=== PATIENT | female | born 1945 | race Caucasian/White ===

== ENCOUNTER 2017-12-29 05:35 | Day surgery (SDC) | payer MEDICARE, OTHER ==
[~2017-12-29] VITALS: Ht 162.6 cm; Wt 92.1 kg
--- NOTE | ~2017-12-29 | OR ---
[facility] [address] [place], [place] [address] Draft DATE OF OPERATION: 12/29/2017 SURGEON: Sheng Valenzuela MD OUTPATIENT SURGERY LOCATION: [facility]. PREOPERATIVE DIAGNOSIS: Right mandibular gingival lesion. POSTOPERATIVE DIAGNOSIS: Right mandibular gingival lesion. PROCEDURE PERFORMED: Excision of right mandibular gingival lesion. ANESTHESIA: General orotracheal. NETTE, Alta Márquez. PREOPERATIVE HISTORY: Doni is a 72-year-old lady with a several month history of an exophytic lesion growing from the right mandibular gingiva anterior adjacent to the canine, this has been quite bothersome, difficulty with eating, etc. She was taken to the operating room for the above-mentioned procedures. OPERATIVE PROCEDURE AND FINDINGS: After informed consent, the patient was taken to the operating room, placed in supine position, where general orotracheal anesthesia was induced. The patient and procedure were verified. The patient was repositioned. 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 1% lidocaine with epinephrine was injected in the mucosa and gingiva around this tumor, did not seem to involve the lingual surface of the mandible, it was attached to the gingiva between the lateral incisor and canine teeth 26 and 27. The lesion was excised from the gingiva, sent to pathology in formalin. Hemostasis was obtained with needle point cautery. The attachment was along the gingiva of the canine tooth, not appear to extend medially to the lingual surface at all. Hemostasis was obtained with needle point cautery. No further pathology was identified. The patient was awakened, PATIENT NAME: DONI BERG OPERATIVE REPORT DATE OF : 49 REPORT #: [id number] PHYSICIAN: SHENG VALENZUELA MD PCP: DAMI BABIN DO REPORT IS CONFIDENTIAL AND NOT TO BE RELEASED WITHOUT AUTHORIZATION [address] [place], [place] [address] Draft extubated, and transported to recovery room in good condition. No complications. BLOOD LOSS: Minimal. SPECIMEN: To pathology. DRAINS: No drains. Sheng Valenzuela MD GC/LIT /[id number] Copies: ~ PATIENT NAME: DONI BERG OPERATIVE REPORT DATE OF : 49 REPORT #: [id number] PHYSICIAN: SHENG VALENZUELA MD PCP: DAMI BABIN DO REPORT IS CONFIDENTIAL AND NOT TO BE RELEASED WITHOUT AUTHORIZATION
[~2017-12-29 05:35] MED LIST: BIOTIN2500 MCG PO; CRANBERRY300 MG PO; CYCLOBENZAPRINE10 MG PO; FUROSEMIDE40 MG PO; LUTEIN20 MG PO; MECLIZINE HCL12.5 MG PO; MELOXICAM15 MG PO; NORCO 10-325 T1 EACH PO; NORCO 5-325 TA1 EACH PO; NORTRIPTYLINE H50 MG PO; POTASSIUM CHLO20 ME2 PO; SINGULAIR10 MG PO; TORSEMIDE20 MG PO; TRIAMTERENE-HC1 EAC3 PO; TURMERIC500 MG PO; VITAMIN D1000 UNI1 PO
--- NOTE | 2017-12-29 08:02 | NUR ---
PATIENT TO SURGERY.
--- NOTE | 2017-12-29 08:44 | NUR ---
12/29/17 0844 Maribell Gabriel 0830 PT ARRIVED TO PACU WITH ORAL AIRWAY IN PLACE AND NONAROUSABLE. PT ON 6L VIA MASK, RESP EVEN AND UNLABORED. 0835 MD AT BEDSIDE PT REACTIVE TO TACTILE STIMULI AND REMAINS ASLEEP. 0838 PT STARTED COUGHING, ORAL AIRWAY REMOVED. PT REORIENTED TO PACU. O2 MASK REMOVED, O2 SAT 100%. PT DENIES NAUSEA AND PAIN. 0840 PT REPORTS SURGICAL SPOT FEELS BETTER THEN BEFORE SURGERY. 0843 PT BACK TO SLEEP.
--- NOTE | 2017-12-29 09:12 | NUR ---
ICED WATER AND COFFEE GIVEN. CALL LIGHT W/IN REACH.
[2017-12-29] MEDS ORDERED: HYCET 7.5 MG-3473 ML PO (09:34)
--- NOTE | 2017-12-29 11:58 | NUR ---
1100 PATIENT IV D/C'D WITH CATHETER INTACT. PATIENT GIVEN WHEELCHAIR RIDE TO FRONT OF HOSPITAL WITH VOLUNTEER FOR DAUGHTER IN LAW TO TRANSPORT HOME.
--- NOTE | 2017-12-29 14:36 | NUR ---
PT IS ALERT AND ORIENTED. SHE MENTIONED THAT THIS IS THE FIRST TIME SINCE HER 'S LAST YEAR THAT SHE HAS DONE ANYTHING LIKE THIS ALONE. SHE SEEMS TO BE DEALING WITH LOSS APPROPRIATELY WE CONTINUED TO VISIT. PT MENTIONED HOW HELPFUL AND COMPASSIONATE STAFF WERE IN ER WHEN HER PASSED. HAD PRAYER WITH PT, WILL FOLLOW NEEDED
== END 2017-12-29 11:05 | disposition home or self-care (01) ==
LOC: OPS 05:35 → DS 05:35 → OPS 06:45 → DS 09:30 → OPS 11:05
PROVIDERS: Otolaryngology
PROC: 0CB6XZZ Excision of Lower Gingiva, External Approach (ICD-10-PCS; principal; 2017-12-29 06:45)
DX: K06.8 Other specified disorders of gingiva and edentulous alveolar ridge (principal); N18.9 Chronic kidney disease, unspecified; M19.90 Unspecified osteoarthritis, unspecified site; K29.60 Other gastritis without bleeding; F32.9 Major depressive disorder, single episode, unspecified; F41.9 Anxiety disorder, unspecified; E66.9 Obesity, unspecified; Z88.2 Allergy status to sulfonamides; Z88.8 Allergy status to other drugs, medicaments and biological substances; Z79.899 Other long term (current) drug therapy; Z87.891 Personal history of nicotine dependence
CPT/HCPCS: J1100; J2250; J2405; J7120

== ENCOUNTER 2018-01-06 19:07 | Emergency (ER) | payer MEDICARE, OTHER ==
[~2018-01-06] VITALS: Ht 162.6 cm; Wt 92.1 kg
[~2018-01-06 19:07] MED LIST changes: +HYCET 7.5 MG-3473 ML PO
--- NOTE | 2018-01-07 14:26 | EKG ---
[facility] [address] [facility] [place] [address] Signed Normal sinus rhythm Left anterior fascicular block Abnormal ECG When compared with ECG of 28-DEC-2017 17:11, Borderline criteria for Lateral infarct are no longer present Confirmed by ESAU GIL MD ([id number]) on 01/07/2018 2:26:23 PM Electronically Signed By: ESAU GIL MD 01/07/18 1426 PATIENT NAME: MALISSA BERG Electrocardiogram DATE OF : 49 PHYSICIAN: ESAU GIL MD REPORT #: [id number] REPORT IS CONFIDENTIAL AND NOT TO BE RELEASED WITHOUT AUTHORIZATION
== END 2018-01-07 02:35 | disposition home or self-care (01) ==
LOC: ED 19:07
DX: I95.1 Orthostatic hypotension (principal); Z88.8 Allergy status to other drugs, medicaments and biological substances; Z88.2 Allergy status to sulfonamides; Z79.899 Other long term (current) drug therapy
CPT/HCPCS: 70450; 71046; 80053; 83735; 83880; 84484; 85025; 85379; 93005; 93010; 96360; 96361; 99285; J7030

== ENCOUNTER 2020-06-02 12:20 | Emergency (ER) | payer MEDICARE, OTHER ==
[~2020-06-02] VITALS: Ht 162.6 cm; Wt 92.1 kg
[2020-06-02] MEDS ORDERED: DULOXETINE HCL60 MG PO (12:33)
--- NOTE | 2020-06-03 12:09 | EKG ---
[facility] [address] [facility] [place] [address] Signed Normal sinus rhythm Left anterior fascicular block Abnormal ECG When compared with ECG of 06-JAN-2018 19:19, No significant change was found Confirmed by ESAU GIL MD ([id number]) on 06/03/2020 12:08:52 PM Electronically Signed By: ESAU GIL MD 06/03/20 1209 PATIENT NAME: MALISSA BERG Electrocardiogram DATE OF : 49 PHYSICIAN: ESAU GIL MD REPORT #: [id number] REPORT IS CONFIDENTIAL AND NOT TO BE RELEASED WITHOUT AUTHORIZATION
== END 2020-06-02 18:20 | disposition short-term general hospital (02) ==
LOC: ED 12:20
DX: R29.898 Other symptoms and signs involving the musculoskeletal system (principal); N18.30 Chronic kidney disease, stage 3 unspecified; Z20.822 Contact with and (suspected) exposure to COVID-19; Z87.891 Personal history of nicotine dependence; Z88.8 Allergy status to other drugs, medicaments and biological substances; Z88.2 Allergy status to sulfonamides; Z79.899 Other long term (current) drug therapy
CPT/HCPCS: 70450; 70496; 70498; 72131; 80053; 83735; 84484; 85025; 93005; 93010; 99285-25; C9803; Q9967; U0003

== ENCOUNTER 2020-09-18 01:30 | Inpatient (IN) | payer MEDICARE, OTHER ==
[~2020-09-18] VITALS: Ht 162.6 cm; Wt 88.2 kg
[~2020-09-18 01:30] MED LIST changes: +DULOXETINE HCL60 MG PO; -VITAMIN D1000 UNI1 PO; +VITAMIN D325 MCG PO
[2020-09-18] MEDS ORDERED: POTASSIUM CHLO10 MEQ PO (01:46)
[2020-09-18] MEDS ORDERED: ALLOPURINOL100 MG PO (01:47)
--- NOTE | 2020-09-18 04:25 | NUR ---
THIS RN TO ER. BEDSIDE REPORT FROM LYN ZUÑIGA. MOVED pt FROM ED TO FLOOR. 4PA TO MOVE FROM STRETCHER TO BED. pt REPORTED 1/10 PAIN WHEN RESTING, 10/10 PAIN WHEN MOVING.
--- NOTE | 2020-09-18 04:59 | NUR ---
ASSESSMENT DONE. pt IS ALERT AND ORIENTED. LUNGS CLEAR, DENIES COUGH. SKIN BREAKDOWN NOTED UNDER EACH BREAST. EXORIATION IN BETWEEN LEGS, DIFFICULT TO CLEAN pt CAN ONLY MOVE LEFT LEG. DENIES INCONTENENCE. FULL BED BATH GIVEN. pt REPORTS IT HAS BEEN 2 WEEKS SINCE SHE HAS HAD A PROPER BATH. pt REPORTS FALL IN JUNE WHEN ALL THE PAIN STARTED. SHE WAS IN HER BATHTUB AND COULD NOT MOVE HER RIGHT LEG, HER LEFT LEG WAS OUT OF THE TUB. SHE WAS SENT TO ANOTHER HOSPITAL, MOVED FROM THE STRETCHER TO BED AND "SOMETHING POPPED AND IN 30 MINUTES IT WAS FINE" pt HAS HAD INCREASING PAIN IN THE LAST WEEK. pt IS USING A WALKER. PITTING EDEMA IN BOTH LEGS. RIGHT LEG HAS TREMORS. AARON RN IN ROOM TO DO ADMISSION.
--- NOTE | 2020-09-18 06:42 | NUR ---
ROUNDED ON pt. WOKE TO VOICE. DENIES INCREASED PAIN OR DISCOMFORT. NO REQUESTS AT THIS TIME. CALL LIGHT WITHIN REACH.
--- NOTE | 2020-09-18 07:05 | NUR ---
BEDSIDE HANDOFF REPORT RECEIVED FROM SCARRER RN. PT RESTING IN BED. PT DENIES OTHER NEEDS AT THIS TIME.
--- NOTE | 2020-09-18 07:54 | NUR ---
PT AWAKE IN BED. WARM CLOTH GIVEN FOR FACE. WHITE BOARD UPDATED. CALL LIGHT WITHIN REACH. BREAKFAST ORDERED. NO FURTHER NEEDS AT THIS TIME.
--- NOTE | 2020-09-18 08:55 | NUR ---
PT RESTING IN BED. ALERT AND ORIENTED. PT DENIES PAIN AT REST, SIGNIFICANT PAIN WITH MOVEMENT. LUNG SOUNDS CLEAR, DENIES SOB, ON ROOM AIR. PT WITH EDEMA IN BLE WORSE IN RIGHT FOOT. CMS INTACT. PT ASSISTED ON TO BED NEWTON, VOIDED. PT WITH GOOD APPETITE, ATE BREAKFAST, DENIES NAUSEA. AWAITING DR. GIL TO EVALUATE PT AND PLACE ORDERS. PT DENIES OTHER NEEDS AT THIS TIME.
--- NOTE | 2020-09-18 10:40 | NUR ---
PT RESTING IN BED. PT GIVEN MEDICATIONS PER EMAR, DISCUSSED PURPOSES AND SIDE EFFECTS. PT DENIES OTHER NEEDS AT THIS TIME.
--- NOTE | 2020-09-18 14:50 | NUR ---
PT RESTING IN BED. PT STATES PAIN IS FINE AT THIS TIME, 6/10 WITH ACTIVITY, PT STATES SHE FEELS THE CURRENT MEDICATION TREATMENT PLAN IS EFFECTIVE. PT ON ROOM AIR, LUNG SOUNDS CLEAR. BOWEL TONESA ACTIVE, TOLERATING DIET. CMS INTACT. PT CONTINUES TO HAVE EDEMA IN BLE, UNCHANGED. PT DENIES OTHER NEEDS AT THIS TIME.
[2020-09-18] MEDS ORDERED: CO Q-10200 MG PO (15:50)
--- NOTE | 2020-09-18 15:52 | NUR ---
MED REC COMPLETE
--- NOTE | 2020-09-18 16:28 | NUR ---
Pt lives alone in an apart on the ground level. Has 2 steps into the apartment which she has difficulty with at times. Pt uses canes, walk er, rollator, and walking sticks as needed. She thinks she may need a shower chair as sheis afraid to shower. She also feels she is in need of a cg as she is unable to complete house hold chores and shower self. Discussed cg and helping hands. Gave [employer] brochure. Her daughter also has spoken with a cg to assist pt in the home. Pt denies other needs. States at times her r leg with not work and she has been stuck in the tub in the past as she was unable to get leg over the side of the tub after showering. Pts step daughter shops and does pts laundry. Pts daughter lives in [place] and would like pt to move to [place] with her. Son is Isaías.
--- NOTE | 2020-09-18 17:46 | NUR ---
PT CONTINUES TO HAVE SIGNIFICANT PAIN WITH MOVEMENT, GABAPENTIN STARTED TODAY. PT ON ROOM AIR, LUNG SOUNDS CLEAR. PT LIMITED WITH MOBILITY, 2PA TO ASSIST TO ROLL, UNABLE TO DO MORE THAN BED EXERCISES WITH P.T. CMS INTACT, CONTINUES TO HAVE EDEMA IN BLE. PT VOIDING USING BED NEWTON.
--- NOTE | 2020-09-18 19:18 | NUR ---
RECEIVED REPORT FROM LYN SCHNEIDER. pt RESTING IN BED. DENIES PAIN AT THIS TIME. CALL LIGHT WITHIN REACH. NO REQUESTS.
--- NOTE | 2020-09-18 22:00 | NUR ---
IN TO DO ASSESSMENT. pt RESTING IN BED. DENIES NEED TO URINATE. DENIES PAIN. pt BRUSHED TEETH AND DID PM CARES. SKIN CARE DONE APPLIED DESENEX POWDER TO REDDENED SKIN FOLDS. SKIN COLOR HAS IMPROVED SINCE ADMISSION. ASSESSMENT DONE. MEDICATIONS GIVEN (SEE MAR). PROVIDED JELLO. NO FURTHER REQUESTS AT THIS TIME. CALL LIGHT WITHIN REACH.
--- NOTE | 2020-09-19 00:19 | NUR ---
ROUNDED ON pt. RESTING IN BED WITH EYES CLOSED, RESPIRATIONS REGULAR AND UNLABORED. CALL LIGHT WITHIN REACH.
--- NOTE | 2020-09-19 02:40 | NUR ---
IN TO DO VITALS. pt WOKE TO VOICE. VITALS DONE. pt DENIED NEED TO VOID BUT AGREED TO TRY. 2PA LOG ROLL ON TO BEDPAN. pt CALLED WHEN DONE. CONCENTRATED CLOUDY URINE. PERICARE DONE. ASSESSMENT DONE. NO FURTHER REQUESTS AT THIS TIME. CALL LIGHT WITHIN REACH.
--- NOTE | 2020-09-19 04:31 | NUR ---
ROUNDED ON pt. RESTING IN BED WITH EYES CLOSED, RESPIRATIONS REGULAR AND UNLABORED. CALL LIGHT WITHIN REACH.
--- NOTE | 2020-09-19 06:20 | NUR ---
IN TO DO VITALS. pt WOKE TO VOICE. VITALS DONE. pt PLACED ON BED NEWTON. CALLED WHEN DONE. LOW URINE OUTPUT. pt HAS NOT HAD MUCH TO DRINK. REPORTED SLEEPING WELL. REPOSITIONED. NO REQUESTS AT THIS TIME. CALL LIGHT WITHIN REACH.
--- NOTE | 2020-09-19 06:56 | NUR ---
NOTIFIED OF LOW URINE OUTPUT. NO NEW ORDERS AT THIS TIME.
--- NOTE | 2020-09-19 08:35 | NUR ---
Scheduled medications administered, assessment complete. Plan of care reviewed with pt who is agreeable. Pt reports no pain at this time. Skin visualized and intact. Breakfast ordered, no further needs, call light in reach.
--- NOTE | 2020-09-19 10:00 | NUR ---
PT in working with patient.
--- NOTE | 2020-09-19 11:05 | NUR ---
Rounded on patient, lunch tray provided and pt up in chair after working with PT. Assisted with set up of lunch, pt states no other needs. Call light in reach.
--- NOTE | 2020-09-19 11:30 | NUR ---
Spoke with Doni. Feeling much better, was able to work with PT and denies pain. Plans on dc to home, with buttermaker helper plan to move to [place] and live with her daughter. States she does not feel she needs to live with daughter at this time as painful episodes are far between. Discussed its better to make a plan when she is not in crisis.
--- NOTE | 2020-09-19 12:38 | NUR ---
Scheduled medications administered and PRN tylenol for mild pain in lower back and R hip/leg. Pt ambulates from chair to BR with FWW and 1PA, tolerated well. Able to walk with FWW to bed, needs assistance with swinging legs into bed and further repositioning due to leg cramping. Juice and water provided, no further needs.
--- NOTE | 2020-09-19 13:45 | NUR ---
PT AWAKE IN BED WATCHING TV. FRESH WATER GIVEN. CALL LIGHT WITHIN REACH. NO FURTHER NEEDS AT THIS TIME.
--- NOTE | 2020-09-19 15:55 | NUR ---
ASSISTED PATIENT TO BATHROOM PATIENTS LEGS WERE VERY TIRED. BEDSIDE COMMODE USED. CALL LIGHT IN REACH. CALL LIGHTIN REACH NOTHING ELSE NEEDED AT THIS TIME.
--- NOTE | 2020-09-19 17:30 | NUR ---
Scheduled medications administered, pt sitting up in bed eating dinner and states no needs. Discussed plan of care and medication indications, pt verbalizes understanding. All questions answered.
--- NOTE | 2020-09-19 19:35 | NUR ---
RECEIVED REPORT FROM DAY SHIFT RN. PATIENT IS RESTING IN BED. NO FURTHER NEEDS NOTED. CALL LIGHT IN REACH.
--- NOTE | 2020-09-19 20:40 | NUR ---
PATIENT ASSESMENT COMPLETED. PATIENTS VITALS TAKEN AND RECORDED. INTAKE AND OUPUT RECORDED. IV FLUSHES WELL AND PATIENT REMAINS SL. PATIENT RATES PAIN AT A 2/10 IN HER RIGHT LEG. PATIENT DENIES THE NEED FOR PRN PAIN MEDICATION. PATIENTS SCHEDULED MEDICATIONS GIVEN PER ORDER. PATIENT DENIES ANY NEEDS. CALL LIGHT AND BELONGINGS WITHIN REACH.
--- NOTE | 2020-09-19 21:00 | NUR ---
IN TO ASSIST PT UP TO THE BSC, 1PA FWW PIVOT, PT REQUIRES SOME ASSIST WITH RT LEG IN AND OUT OF BED, NO FURTHER NEEDS AT THIS TIME
--- NOTE | 2020-09-19 23:52 | NUR ---
PATIENT ASSISTED TO THE RESTROOM A 1PA W/FWW. PATIENT WAS ABLE TO VOID. PATIENT IS BACK IN BED RESTING. PATIENT DENIES ANY NEEDS AT THIS TIME. CALL LIGHT IN REACH.
--- NOTE | 2020-09-20 01:50 | NUR ---
PATIENT IS RESTING IN BED WITH EYES CLOSED, RR 18. CALL LIGHT IN REACH.
--- NOTE | 2020-09-20 02:20 | NUR ---
in to assist pt to the toilet, 1pa fww to the bathroom and back to bed, assist pt with legs, no further needs at this time
--- NOTE | 2020-09-20 03:43 | NUR ---
PATIENT IS RESTING IN BED WITH EYES CLSOED, RR 18. CALL LIGHT IN REACH.
--- NOTE | 2020-09-20 06:15 | NUR ---
IN TO GET VITALS WITH RN, PT BACK TO RESTING AT THIS TIME, NO FURTHER NEEDS AT THIS TIME
--- NOTE | 2020-09-20 06:32 | NUR ---
VITALS TAKEN AND RECORDED. INTAKE AND OUTPUT RECORDED. PATIENT REPORTS 3/10 PAIN AND DENIES THE NEED FOR PAIN MEDICATION AT THIS TIME. PATIENT IS RESTING IN BED. PATIENT DENIES ANY FURTHER NEEDS. CALL LIGHT IN REACH.
--- NOTE | 2020-09-20 09:45 | NUR ---
PT UP TO BSC. 1PA W/ FWW. PT C/O PAIN WHEN WIPING BOTTOM, VISUALIZED OPEN SORE AREA, PICTURES TAKEN AND PLACED ON CHART. ALLEVYN ON COCCYX FOR PRESSURE RELIEF. PT SITTING UP IN CHAIR W/ PILLOWS. REPORTS FEELING MINIMAL PAIN AT REST. ABLE TO AMBULATE SHORT DISTANCES W/OUT FEELING SOB. PT RECEIVING SCHEDULED FLEXERIL FOR RIGHT LEG PAIN. LIDOCAINE PATCH PUT IN PLACE.
--- NOTE | 2020-09-20 12:30 | NUR ---
PT EATING AND DRINKING WELL. LUNCH TRAY REMOVED. PT UP TO USE BATHROOM TO VOID, URINE OUTPUT HAS BEEN QUANTITY SUFFICIENT. RATING RIGHT LEG AND BACK PAIN 3/10 AT THIS TIME. BACK TO CHAIR. DENIES FURTHER NEEDS. CALL LIGHT IN REACH.
--- NOTE | 2020-09-20 14:54 | NUR ---
SET PATIENT UP FOR A SHOWER SOMETIME TODAY.
--- NOTE | 2020-09-20 15:30 | NUR ---
GAVE PT AFTERNOON SCHEDULED FLEXERIL AND GABAPENTIN. PT REQUESTING TO USE COMMODE TO VOID. ASSOCIATE PROFESSOR OF MEDICINE'S IN TO SET UP SHOWER.
--- NOTE | 2020-09-20 15:58 | NUR ---
Spoke with pt and discussed concern from PT she is not safe to go home alone. Pt states she will consider rehab program and brochures given for [facility]. Will attempt to schedule appt with Dr Keys, she has seen in the past. Notified by Claudia, pt was seen in the hospital and not in the office. Pt will need referral from PCP to schedule appt.
--- NOTE | 2020-09-20 16:15 | NUR ---
PT SHOWERED AND BACK TO BED. HAS BEEN IN AND OUT OF CHAIR THROUGHOUT DAY, WORKING W/ PHYSICAL THERAPY WELL. WOULD LIKE TO REST IN BED NOW. CONTINUES TO BE VERY PAINFUL W/ MOVEMENT. SBA W/ FWW, 1PA TO GET UP. LUNG SOUNDS ARE CLEAR, DIM IN BASES. PT DENIES SOB W/ AMBULATION. DENIES PAIN AT REST.
--- NOTE | 2020-09-20 16:39 | NUR ---
CALLED TO SCHEDULE AN APPT. AND WAS TOLD THAT THEY NEED A REFERRAL FIRST THIS PATIENT IS NEW TO HIM AWAY FROM THE HOSPITAL. LET ELISA KNOW SINCE SHE WAS THE ONE THAT ASKED ME TO MAKE THE APPT.
--- NOTE | 2020-09-20 19:25 | NUR ---
SHIFT REPORT REEIVED FROM DAYSHIFT LYN GRIFFIN AT BESIDE, pt AWAKE AND RESTING IN CAHIR. RR EVEN AND UNALBORED, NO DISTRESS NOTED. CALL LIGHT IN REACH.
--- NOTE | 2020-09-20 19:50 | NUR ---
IN TO ASSIST PT TO THE BSC, 1PA FWW FROM CHAIR, THEN BACK TO BED, PILLOW POSSITIONED UNDER LEFT HIP, CALL LIGHT AND BEDSIDE TABLES IN REACH, NO FURTHER NEEDS AT THIS TIME
--- NOTE | 2020-09-20 21:45 | NUR ---
PT VITALS DONE, PT UP TO THE BSC, THEN BACK TO BED, PT POSSITIONED TO BACKSIDE AT THIS TIME
--- NOTE | 2020-09-20 21:50 | NUR ---
ASSESSMENT COMPLETE, SCHEDULED MEDS GIVEN (SEE EMAR). VSS, pt DENIES PAIN AT REST. ALLEVYN TO COCCYX C/D/I, UNABLE TO ASSESS UNDER ALLEVYN AT THIS TIME D/T DRESSING. pt EDUCATED ON IMPORTANCE TO TURN AND CHANGE POSITIONS WHEN AWAKE, pt VERBALIZED UNDERSTANDING. CALL LIGHT IN REACH, NO FURTHER NEEDS AT THIS TIME.
--- NOTE | 2020-09-20 23:35 | NUR ---
PT CALLED, 1PA W/FFW TO BSC AND BACK TO BED. LEGS ARE ELEVATED ON PILLOW AND CALL LIGHT IS CLOSE. PT DENIES FURTHER NEEDS AT THIS TIME.
--- NOTE | 2020-09-20 23:50 | NUR ---
IN TO CHECK ON PT TO SEE IF SHE NEEDED REPOSSITION WITH PILLOW, PT DECLINED AT THIS TIME SHE WAS UP TO VOID APPROX 15 AGO, STATES SHE WILL TO TRT TO CALL IN A COUPLE HOURS IF SHE WAKES UP, OTHERWISE SHE CAN MOVE HERSELF A LITTLE BIT
--- NOTE | 2020-09-21 01:56 | NUR ---
REPORT GIVEN TO LYN DUKE TO RESUME CARE FOR pt AT THIS TIME.
--- NOTE | 2020-09-21 01:56 | NUR ---
RECEIVED REPORT FROM CHUCK NICHOLSON. PATIENT IS RESTINGI N BED WITH EYES CLOSED, RR 17. CALL LIGHT IN REACH.
--- NOTE | 2020-09-21 03:46 | NUR ---
PATIENT IS RESTING IN BED WITH EYES CLSOED, RR 18. CALL LIGHT IN REACH.
--- NOTE | 2020-09-21 06:02 | NUR ---
PATIENT ASSISTED TO THE BSC A 1PA W/FWW. PATIENT WAS ABLE TO VOID. PATIENT IS BACK IN BED RESTING. PATIENT RATES PAIN AT A 3/10. PATIENT DENIES THE NEED FOR PAIN MEDICATION AT THIS TIME. PATIENT DENIES ANY NEEDS. CALL LIGHT IN REACH.
--- NOTE | 2020-09-21 09:00 | NUR ---
Spoke with Doni following IDT meeting. Plan for pt to go to SNF until she can see neurologist if Dr Keys will not accept as a transfer. Discussed SNFS and pt [facility].
--- NOTE | 2020-09-21 09:15 | NUR ---
PT UP TO CHAIR AFTER BREAKFAST. LIDOCAINE PATCH TO RT THIGH FOR PAIN AND SPASMS. RT LEG HAS SMALL TREMOR AT TIMES. PT HAS HAD GOOD APPETITE AND TOLERATING REGULAR DIET WELL. MORNING MEDICATIONS GIVEN. 20 G IV IN LEFT WRIST REMAINS PATENT. PT REPORTS FEELING WEAK THIS AM. ATTEMPTED TO AMBULATE TO BATHROOM THIS MORNING, BEGAN C/O FEELING WEAK AND UNSTEADY, COMMODE BROUGHT TO PT TO VOID. PT REQUESTING BOWEL MEDS SHE HAS NOT HAD A BM SINCE 09/18.
--- NOTE | 2020-09-21 09:39 | NUR ---
PATIENT UP TO CHAIR WITH LYN GRIFFIN, THIS CHIEF SOLUTION ARCHITECT TOOK OVER. PATIENT STOOD WITH FWW TO MOVE TO CHAIR, FELT UNSURE/WEAK AND SAT BACK DOWN SWIFTLY. PATIENT PRETTY SHOOK UP, BUT ATTEMPTED AGAIN AND WAS ABLT TO MOVE TO CHAIR WITH NO PROBLEM THIS TIME. LEGS ELEVATED, CALL LIGHT AND PERSONAL ITEMS WITHIN EASY REACH. LYN GRIFFIN NOTIFIED.
--- NOTE | 2020-09-21 10:00 | NUR ---
PT UP WORKING WITH KIMMY FROM PT. AMBULATING HALLWAY WHEN SHE REQUESTED TO SIT DOWN IN WHEELCHAIR AND HAD MODERATE ANXIETY ATTACK. RETURNED WITH PT TO ROOM AND WAS ABLE TO CALM PT WITH THERAPEUTIC COMMUNICATION AND DEEP BREATHING TECHNIQUES. PT STATES ANXIETY MOSTLY RESOLVED, DENIES NEED FOR MEDICATION AT THIS TIME. PT TO BED AND PROVIDED WARM BLANKETS. VSS. CALL LIGHT IN REACH.
--- NOTE | 2020-09-21 11:30 | NUR ---
Chart faxed to [facility] and left a message if this pt could admit today or tomorrow.
--- NOTE | 2020-09-21 13:00 | NUR ---
PT MOOD MUCH IMPROVED AFTER LUNCH. TRAY TAKEN FROM ROOM. PT DENIES FURTHER NEEDS. CALL LIGHT IN REACH.
--- NOTE | 2020-09-21 14:05 | NUR ---
Spoke with Lillian, she will review. Admit would be tomorrow. She will let me know after she reviews chart if they can accept.
--- NOTE | 2020-09-21 15:00 | NUR ---
Received call from [facility]. They will accept pt tomorrow, but cannot transport. Called [facility] and they can transport at 10:00. Pt needs to be at the front of the hospital by 10:00. They will scheduled pt's neuro visit with Dr. Corbin for the beginning of next week and will transport pt. Pt will need a covid swab and prior to admit. Covid ordered. Orders printed and given to Dr. Bae. In and spoke with. She will ask her children to bring her clothing.
--- NOTE | 2020-09-21 15:50 | NUR ---
Received orders and faxed to [facility] with [facility]. Orders placed in envelope at desk top publisher with request for staff to add covid test when completed and dc summary. Phone number for [facility] left for staff to call tomorrow to confirm orders [phone] and to call report. Spoke with pt and she does not think step kids will bring clothing. Informed I will ask the house supevisor to bring her some scrubs to transport in. She will check if kids can bring clothing at a later date.
[2020-09-21] MEDS ORDERED: GABAPENTIN100 MG PO (16:10)
--- NOTE | 2020-09-21 16:25 | NUR ---
RT COLLECTED COVID 19 SWAB WITH NO COMPLICATIONS. RT USED THE CEPHEID RAPID TEST THROUGH [facility] PER DR REQUEST AT THIS TIME.
--- NOTE | 2020-09-21 19:30 | NUR ---
SHIFT REPORT RECEIVED FROM DAYSHIFT LYN GRIFFIN. pt AWAKE AND RESTING IN BED, NO NEEDS VERBALIZED. CALL LIGHT IN REACH.
--- NOTE | 2020-09-21 21:15 | NUR ---
ASSESSMENT COMPLETE, SCHEDULED MEDS GIVEN (SEE EMAR). pt REPORTS TOLERABLE 2/10 PAIN, VSS. ALLEVYN TO COCCYX REMOVED EARLIER ON DAYSHI, REDDNESS BLANCHABLE. pt VERBALIZES UNDERSTANDING IN CHANGING POSITIONS WHILE IN BED. NO FURTHER NEEDS, CALL LIGHT IN REACH.
--- NOTE | 2020-09-21 21:20 | NUR ---
IN WITH RN TO GET VITALS, ICE WATER REFILLED, PT DOES NOT NEED TO VOID AT THIS TIME AND WILL CALL WHEN READY, NO FURTHER NEEDS AT THIS TIME
--- NOTE | 2020-09-21 22:06 | NUR ---
PT CALLED TO GET ON THE BSC, 1PA PIVOT WITH FWW, CALL LIGHT NEARBY FOR PT TO CALL, PRIVICY PROVIDED AT THIS TIME
--- NOTE | 2020-09-21 22:10 | NUR ---
IN TO ASSIST PT BACK TO BED, NO FURTHER NEEDS AT THIS TIME
--- NOTE | 2020-09-22 00:25 | NUR ---
pt RESTING IN BED WITH EYES CLOSED, RR EVEN AND UNLABORED. NO DISTRESS NOTED, CALL LIGHT IN REACH.
--- NOTE | 2020-09-22 03:54 | NUR ---
pt RESTING QUIETLY IN BED WITH EYES CLOSED, RR EVEN AND UNLABORED. NO DISTRESS NOTED, pt APPEARS RELAXED AND COMFORTABLE. CALL LIGHT IN REACH.
--- NOTE | 2020-09-22 05:30 | NUR ---
ASSESSMENT COMPLETE, NO NEW CHANGES OR CONCERNS. VSS AND I&O'S COMPLETE. pt UP 1PA WITH FWW TO BSC O VOID AND BACK IN BED, TOLERATED WELL. REPORTS PASSING GAS. FRESH JUICE GIVEN, NO FURTHER NEEDS, CALL LIGHT IN REACH.
--- NOTE | 2020-09-22 08:25 | NUR ---
IN TO GIVE MORNING MEDICATIONS. PT SITTING UP EATING BREAKFAST, PT HAS GOOD APPETITE AND DENIES NAUSEA. LIDOCAINE PATCH PLACED TO RIGHT THIGH AND GIVEN TYLENOL FOR 6/10 PAIN. PT REFUSING MIRALAX THIS AM SHE WAS ABLE TO HAVE LARGE BM LAST NIGHT. PT TO DC THIS AM TO [facility] AT 10 AM. SCRUBS PROVIDED. PT WILL CALL AFTER BREAKFAST TO GET DRESSED. CALL LIGHT IN REACH.
--- NOTE | 2020-09-22 09:12 | NUR ---
PATIENT UP TO BSC THEN TO CHAIR, 1PA FWW. PATIENT GOT A LITTLE DIZZY WHEN TO THE BSC BUT RECOVERED FAST, RN NOTIFIED. VITALS AND I&O'S DONE. WARM WASHCLOTH GIVEN. CALL LIGHT IN REACH. NO FURTHER NEEDS AT THIS TIME.
--- NOTE | 2020-09-22 09:15 | NUR ---
PT UP TO BSC, NO REDNESS NOTED TO COCCYX AREA. SCRUBS ON. PT TO CHAIR TO AWAIT RIDE.
--- NOTE | 2020-09-22 10:33 | NUR ---
PT SITTING UP IN CHAIR AND DRESSED IN SCRUBS. VSS AND IV IN LEFT WRIST REMOVED. RODY IN WITH WHEELCHAIR TO TAKE PT TO FRONT. PT LEFT [place] TO APARTMENT WITH CHAR FILTER TANK TENDER HEAD FOR STEP-DAUGHTER TO HEALTH CARE MANAGER, PT LABEL ON [place]. CALLED AND LEFT MESSAGE FOR STEP-DAUGHTER, SHE IS TO TAKE CLOTHES TO PT AT [facility]. REPORT CALLED TO ALINA NICHOLSON AT [facility]. PT DEPARTED FROM FACILITY AT 0955.
== END 2020-09-22 09:55 | DRG 552 ==
LOC: ED 01:30 → MS 01:32
PROVIDERS: ADMIT Internal Medicine; ATTEND Internal Medicine
DX: M54.16 Radiculopathy, lumbar region (principal); Z20.822 Contact with and (suspected) exposure to COVID-19; N18.30 Chronic kidney disease, stage 3 unspecified; D72.829 Elevated white blood cell count, unspecified; E79.0 Hyperuricemia without signs of inflammatory arthritis and tophaceous disease; F41.8 Other specified anxiety disorders; Z88.8 Allergy status to other drugs, medicaments and biological substances; Z88.2 Allergy status to sulfonamides; Z79.899 Other long term (current) drug therapy
CPT/HCPCS: 71045; 73700; 80053; 81001; 85025; 85651; 86140; 87088; 96374; 96375; 97110; 97116; 97162; 97530; 99285-25; A9270; C9803; J1885; J2405; J2930; J3010; J7512; U0003